=== PATIENT | male | born 1950 | race Asian ===

== ENCOUNTER 2016-03-17 12:31 | Emergency (ER) | payer OTHER ==
[2016-03-17 12:54] VITALS: TEMP 98
[2016-03-17] MEDS ORDERED: IBUPROFEN 600 MG TAB PO ONE (13:05)
--- NOTE | 2016-03-17 14:46 | DX ---
Left hip, 2 views History: Fall, pain. Findings: Lateral acetabular rim 50 mm minimally displaced probable acute fracture noted. 3-mm bone density lateral to the femoral neck also probably representing a nondisplaced femoral neck fracture. No evidence of superior or inferior pubic ramus fractures. No significant joint space narrowing. Mode rate degenerative disk disease in the lumbar spine at L4-L5 with circumferential osteophytes. Impression: 1. Left acetabular lateral rim fracture. 2. Possible left femoral neck fracture. 3. Recommend CT left hip for further evaluation. Findings and recommendations discussed with Marii Mckeon PA-C at 1440 hours today.
--- NOTE | 2016-03-17 15:36 | CT ---
CT of the left hip Without Contrast With Multiplanar Reconstructions at 1454 hours History: Left hip pain post fall, acetabular fracture on plain film. Comparison: Today's plain film of the left hip. Technique: Noncontrast axial computed tomographic images of the left hip with sagittal, coronal, and multiplanar reconstructions. Multiplanar reconstructions including 3D reconstructions performed and e valuated on [employer] workstation in order to better evaluate the femoral neck and acetabular region. Do se reduction techniques were utilized. Findings: There is a vertical lucency and nondisplaced fragment involving the lateral aspect of the a cetabulum, most likely representing a nondisplaced acetabular fracture measuring 14 mm in AP dimensio n. Left femoral head and neck region demonstrate no evidence of acute fracture. The medial wall of th e acetabulum appears intact. No significant joint space narrowing. Impression: 1. Nondisplaced left acetabular superolateral rim fracture. 2. No evidence of left femoral head/neck fracture. Findings and recommendations discussed with Marii Mckeon PA-C at 1520 hours today. Cosign: Dr. Haseeb Erwin
--- NOTE | 2016-03-17 15:49 | UCPHY ---
H & P Patient Type: New Smoking Status: Never smoked Time Seen by Provider: 03/17/16 12:37 HPI/ROS: CHIEF COMPLAINT: Left hip pain after fall HISTORY OF PRESENT ILLNESS: 65-year-old male presents to urgent care by private vehicle after he slipped and fell on his carpeted stairs at home 2 days ago. Since that time he has had isolated pain to the left hip. He denies hitting his head or losing consciousness. Denies any presyncopal symptoms prior to his fall. Denies back pain. He has a history of back surgery 6 months ago and has a bit of weakness in his left leg any way any thinks that is why he slipped and fell. He denies abdominal pain. Denies chest pain or difficulty breathing. Denies neck or back pain. Denies symptoms in the right lower extremity or the upper extremities bilaterally. REVIEW OF SYSTEMS: Constitutional: No fever, no chills. Eyes: No double or blurry vision. ENT: No sore throat. Respiratory: No cough, no shortness of breath. Cardiac: No chest pain. Gastrointestinal: No abdominal pain, vomiting or diarrhea. Genitourinary: No dysuria. Musculoskeletal: No neck or back pain. Skin: No rashes. Neurological: No headache. (Marii Mckeon) Past Medical/Surgical History: Back surgery [address] Lai Thacker (Marii Mckeon) Social History: (Marii Mckeon) Physical Exam: General Appearance: Alert, no distress. No visible signs of trauma to his head. He is mentating normally and answering questions appropriately. Eyes: Pupils equal and round. Extraocular motions are all intact. ENT: Mouth: Mucous membranes moist. Respiratory: No wheezing, rhonchi, or rales, lungs are clear to auscultation. Cardiovascular: Regular rate and rhythm. Gastrointestinal: Abdomen is soft and nontender, no masses, no rebound or guarding, bowel sounds normal. Neurological: Alert and oriented x 3, cranial nerves II through XII grossly intact Skin: Warm and dry, no rashes. Musculoskeletal: Nontender to palpate along the cervical, thoracic or lumbar spine. Neck is supple. Extremities: Pain with external rotation especially of the left hip. He has pain with flexing his left knee as well. He has reproducible pain with palpation to the lateral aspect of the left hip. No palpable crepitus or other bony abnormality. Nontender to palpate the right hip. Full range of motion of the right lower extremity in his upper extremities bilaterally. Reflexes are 2+ and equal for lower extremities bilaterally. Psychiatric: Patient is oriented X 3, there is no agitation. (Marii Mckeon) Constitutional: Initial Vital Signs Temperature (C) 36.6 C 03/17/16 12:49 Heart Rate 73 03/17/16 12:49 Respiratory Rate 18 03/17/16 12:49 Blood Pressure 117/78 03/17/16 12:49 O2 Sat (%) 97 03/17/16 12:49 O2 Delivery Mode Room Air Allergies/Adverse Reactions: Sulfa (Sulfonamide Antibiotics) Allergy (Verified 07/15/15 09:32) Home Medications: Medication Instructions Recorded Aspirin [Aspirin 81mg (*)] 81 mg PO DAILY 07/09/15 Cholecalciferol Vit D3 [Vitamin D3 1,000 units PO DAILY 07/09/15 (*)] Irbesartan [Avapro 75 mg (*)] 37.5 mg PO DAILY 07/09/15 Multivitamins [Multivitamin (*)] 1 each PO DAILY 07/09/15 [place]-3 Fatty Acids [Fish Oil 1000 2,000 mg PO DAILY 07/09/15 mg (*)] Methocarbamol [Robaxin 750 mg (*)] 750 mg PO QID PRN #40 tab 08/21/15 Sennosides/Docusate Sodium 1 - 2 tab PO BID #30 tab 08/21/15 [Senokot-S] oxyCODONE IR [Oxycodone Ir (*)] 5 mg PO Q3 PRN #60 tab 08/21/15 Hydrocodone/APAP 5/325 [[place] 1 each PO Q4-6PRN PRN #15 tab 03/17/16 5/325 (*)] Medical Decision Making - Diagnostics Imaging: X-rays of the left hip and pelvis reveal possible acetabular fracture as well as possible femoral neck fracture. This is reviewed by myself and the PAC system as well as with the radiologist, Dr. Jensen. CT imaging of the left hip reveal acetabular fracture. No femoral neck fracture noted. This was reported to me by Dr. Jensen. (Marii Mckeon) ED Course/Re-evaluation: 65-year-old male presents after mechanical fall on stairs 2 days ago injuring his left hip. X-rays of the left hip and pelvis reveal possible femoral neck fracture and acetabular fracture. This was reviewed by myself as well as discussed with Dr. Jensen. Patient had CT imaging of the left hip to further evaluate fracture. There is no femoral neck fracture seen on CT scan. However, avulsion fracture of the acetabulum noted. I spoke with Dr. Siva Verduzco who was on-call for Orthopedics, who agreed with weightbear as tolerated. He may use crutches if needed or a walker. He was encouraged to have follow-up in their clinic to recheck. This was discussed with the patient as well as at bedside who is a nurse at [facility]. They agree. The is already made an appointment for him to see an orthopedist tomorrow at 10:30 a.m.. Patient will be discharged with hydrocodone per their request. He will weightbear as tolerated. He was comfortable with this plan and comfortable being discharged home. (Marii Mckeon) Urgent Care PA supervision Physician documentation: The patient was evaluated and managed by the physician lpn or medical assistant. My co- signature indicates that I have reviewed this chart and I agree with the findings and plan of care as documented. I am is secondary supervising physician. (Freddy Wahl) Differential Diagnosis: Including but not limited to fracture, dislocation, contusion, sprain (Marii Mckeon) - Data Points Medications Given: Discontinued Medications Ibuprofen (Motrin) 600 mg PO EDNOW ONE Stop: 03/17/16 13:06 Last Admin: 03/17/16 13:40 Dose: Not Given Departure - Departure Disposition: Home, Routine, Self-Care Clinical Impression: Left acetabular fracture Condition: Good Instructions: Pelvic Fracture (ED) Additional Instructions: The radiologist believes that you have a fracture of your left acetabulum. We spoke with Dr. Verduzco while you are in urgent care. You may weightbear as tolerated. You may use crutches or a walker for assistance if needed. Return or go to the emergency department if you develop increasing pain or if you feel worse in any way. [place] for severe pain as directed. Referrals: Siva Verduzco MD [Medical Doctor] - 2-3 days without fail (Orthopedic surgeon on-call) Prescriptions: Hydrocodone/APAP 5/325 [[place] 5/325 (*)] 1 each PO Q4-6PRN PRN #15 tab PRN Reason: Pain, Severe - PQRS PQRS Measurement: Not applicable (Marii Mckeon
[2016-03-17 16:39] VITALS: BP 159/92; PULSE 90; RESP 16; O2SAT 92
== END 2016-03-17 16:40 | disposition home or self-care (01) ==
LOC: CED 12:31
DX: S32.492A Other specified fracture of left acetabulum, initial encounter for closed fracture (principal)
CPT/HCPCS: 73502-PO; 73700-PO; 99214-PO; G0463-PO

== ENCOUNTER → 2016-03-23 | Outpatient (CLI) | payer OTHER ==
--- NOTE | 2016-03-23 16:50 | DX ---
Pelvis, One View Indication: Fall. Prior fracture. Comparison: CT lower extremity March 17, 2016. Findings: A small area of irregularity off of the left posterior acetabulum is again seen and shows evidence of healing. Femoral heads and necks are unremarkable. The remainder of the bony pelvis is normal. Impression: Healing nondisplaced posterior acetabular fracture.
== END ==
LOC: FIMAGING 07:18
PROVIDERS: ATTEND Physician Assistant
DX: S32.402A Unspecified fracture of left acetabulum, initial encounter for closed fracture (principal)

== ENCOUNTER 2016-05-14 15:01 | Observation (INO) | payer OTHER ==
[2016-05-14] MEDS ORDERED: ONDANSETRON 4 MG/2 ML VIAL IVP PRN (16:00)
[2016-05-14] MEDS ORDERED: ACETAMINOPHEN 325 MG TAB PO PRN (16:00)
[2016-05-14] MEDS ORDERED: ONDANSETRON DISINTEGRATING 4 MG TAB PO PRN (16:00)
[2016-05-14] MEDS ORDERED: NITROGLYCERIN 0.4 MG BTL SL PRN (16:10)
--- NOTE | 2016-05-14 16:26 | PDCARPN ---
Cardiology Progress Note Chief Complaint: Chest pressure Assessment/Plan: Assessment: Mr. Jain is a direct admit from our office. Please see Dr. Jacome it is noted as H&P. 65-year-old male with significant history non flow limiting CAD (based off cardiac catheterization 2012, maximum luminal stenosis 50% and distal LAD), WPW (refused ablation past), hypertension, sleep apnea (CPAP) and previous smoker.. Reporting new onset chest pressure, lightheadedness, and fatigue. Electrocardiogram done in office revealed new ST segment depression and T-wave inversion in V3, V4, V5, V6. He currently denies of any chest pressure or pain. He has been admitted to the hospital for evaluation of ACS. Plan: 1. Chest pressure: Patient with known history of CAD with new electrocardiogram changes. Will plan on doing serial troponin levels. If negative, will then plan on doing ETT/MPI study in a.m.. If he does have a bump troponin, then consideration for coronary catheterization. Continue on home anti-platelet aspirin therapy. Sublingual nitroglycerin has been ordered. Will also have him get a chest x-ray. NPO after midnight, case he may need catheterization. 2. CAD: Patient with known history of non flow limiting CAD based off of cardiac catheterization in 2012. Continue on anti-platelet of aspirin. Patient had been on statin therapy in the past of Lipitor, reporting muscle aches and pains, self discontinued. Will have him get a fasting lipid panel in a.m. for evaluation. 3. Hypertension: Current blood pressure within normal limits. Continue on home dosage medication. Continue monitor, adjust as necessary 4. WPW: Office EKG does show prominent delta wave, patient denies of any palpitations. Will monitor on continuous cardiac 5. Sleep apnea: Patient will plan on using home CPAP machine. 6. DVT precaution: Patient is mobile, will hold off on any anticoagulation at this time, in case patient may need potential catheterization or be started on heparin. 7. Code status: Patient is a full code. 05/14/16 16:24 Subjective: Patient currently denies of any chest pain, shortness of breath, palpitations, lightheadedness, orthopnea, PND, edema, near-syncope or syncopal events. Denies of any symptoms suggestive TIA or CVA. Reviewed/Discussed With: family (Patient ), other (Dr Jacome) Objective: Vital Signs (8 Hrs) Temp Pulse Resp BP Pulse Ox 05/14/16 15:54 36.6 C 81 16 127/77 H 91 L Intake/Output (24 Hrs) 05/13/16 05/14/16 05/15/16 05:59 05:59 05:59 Other: Weight 80.8 kg - Physical Exam Constitutional: WDWN, healthy appearing, no apparent distress Ears, Nose, Mouth, Throat: moist mucous membranes Cardiovascular: regular rate and rhythm, no murmurs, no rubs, no gallops, pulses symmetric bilat, No jugular vein distention, No carotid bruit Peripheral Pulses: 2+: carotid (R), carotid (L), dorsalis-pedis (R), dorsalis- pedis (L) Respiratory: clear to auscultate bilat, no crackles, no wheezes, No reduced air movement Gastrointestinal: normoactive bowel sounds Skin: no rashes, warm, no edema Neurologic: AAOx3 Psychiatric: cooperative, interactive, following commands ICD10 Worksheet Patient Problems: Problems Problem Status Onset Lumbar stenosis Acute Lumbar radicular pain Acute
[2016-05-14 16:31] LABS: % IMMATURE GRANULYOCYTES 0.3 % (0.0-1.1); ABSOLUTE IMMATURE GRANULOCYTES 0.01 10^3/uL (0.00-0.10); ADD DIFF? NO; ADD MORPH? NO; ADD SCAN? NO; ATYPICAL LYMPHOCYTE FLAG 0 (0-99); FRAGMENT RBC FLAG 0 (0-99); HEMATOCRIT 46.8 % (40.0-51.0); HEMOGLOBIN 15.2 g/dL (13.7-17.5); LEFT SHIFT FLG 0 (0-99); LIPEMIA HEMOLYSIS FLAG 80 (0-99); MEAN CELL HEMOGLOBIN 24.5 pg (27.9-34.1); MEAN CELL HEMOGLOBIN CONCENTR. 32.5 g/dL (32.4-36.7); MEAN CELL VOLUME 75.4 fL (81.5-99.8); MEAN PLATELET VOLUME 7.9 fL (8.7-11.7); PLATELET CLUMPS FLAG 0 (0-99); PLATELET COUNT 143 10^3/uL (150-400); RED BLOOD CELL COUNT 6.21 10^6/uL (4.40-6.38); RED CELL DISTRIBUTION WIDTH 15.9 % (11.5-15.2)
[2016-05-14 16:53] LABS: ALANINE AMINOTRANSFERASE 48 IU/L (21-72); ALBUMIN 4.4 g/dL (3.5-5.0); ALKALINE PHOSPHATASE 59 IU/L (38-126); ANION GAP 12 mEq/L (8-16); ASPARTATE AMINOTRANSFERASE 34 IU/L (17-59); BILIRUBIN,TOTAL 0.6 mg/dL (0.1-1.4); CALCIUM 9.5 mg/dL (8.5-10.4); CARBON DIOXIDE 21 mEq/l (22-31); CHLORIDE 107 mEq/L (97-110); CREATININE 1.1 mg/dL (0.7-1.3); GLOMERULAR FILTRATION RATE > 60; GLUCOSE 127 mg/dL (70-100); POTASSIUM 4.1 mEq/L (3.5-5.2); SODIUM 140 mEq/L (134-144); TOTAL PROTEIN 7.8 g/dL (6.3-8.2)
[2016-05-14 17:05] LABS: TROPONIN I < 0.012 ng/mL (0-0.034)
--- NOTE | 2016-05-14 17:20 | CPEKG ---
Heart Rate: 82 RR Interval: 732 P-R Interval: 120 QRSD Interval: 130 QT Interval: 388 QTC Interval: 453 P [place]: 53 QRS [place]: -41 T Wave [place]: 126 EKG Severity - ABNORMAL ECG - EKG Impression: SINUS RHYTHM EKG Impression: LVH WITH IVCD, LAD AND SECONDARY REPOL ABNRM EKG Impression: probable pre-excitation pathway EKG Impression: non-specific ST depression laterally. Electronically Signed By: Victor M Villavicencio 15-May-2016 10:05:13
[2016-05-14] MEDS: NS 1,000 ML IV SCH (17:48)
[2016-05-14] MEDS: OMEGA-3 FATTY ACIDS 1,000 MG CAP PO SCH (20:55)
[2016-05-14] MEDS: ASPIRIN 81 MG CHEWABLE TAB PO SCH (20:55)
[2016-05-15 05:38] LABS: CHOLESTEROL 158 mg/dL (140-220); CHOLESTEROL/HDL RATIO 5.64 RATIO (1.00-4.97); HIGH DENSITY LIPOPROTEIN 28 mg/dL (40-65); LDL/HDL RATIO 3.29 RATIO (1.00-3.64); LOW DENSITY LIPOPROTEIN 92 mg/dL (80-100); NON-HIGH DENSITY LIPOPROTEIN 130 mg/dL (90-129); TRIGLYCERIDE 194 mg/dL (40-150); VERY LOW DENSITY LIPOPROTEINS 38 mg/dL (8-25)
[2016-05-15 05:46] LABS: TROPONIN I < 0.012 ng/mL (0-0.034)
--- NOTE | 2016-05-15 05:52 | CPEKG ---
Heart Rate: 57 RR Interval: 1053 P-R Interval: 132 QRSD Interval: 124 QT Interval: 448 QTC Interval: 437 P [place]: 68 QRS [place]: -56 T Wave [place]: 93 EKG Severity - ABNORMAL ECG - EKG Impression: SINUS RHYTHM EKG Impression: VENT PREEXCITATION, LEFT ACCESSORY PATHWAY Electronically Signed By: Victor M Villavicencio 15-May-2016 10:02:51
[2016-05-15] MEDS ORDERED: CHOLECALCIFEROL VIT D3 1,000 UNITS TAB PO SCH (09:00)
[2016-05-15] MEDS ORDERED: IRBESARTAN 75 MG TAB PO SCH (09:00)
[2016-05-15] MEDS ORDERED: REGADENOSON 0.4 MG/5 ML SYR IVP ONE (09:09)
--- NOTE | 2016-05-15 10:30 | SOAPPROG ---
SOAP Progress Note Assessment/Plan: Assessment: Cardiology ([place]) 1. Admit w/ chest discomfort and abnormal EKG directly from Dr. Jacome's office. Troponins negative x 3 overnight. Patient had chest discomfort overnight that was relieved with O2 by nc. He has continued to have chest discomfort this am. Patient developed 7/10 chest pain immediately following Lexiscan injection that was consistent with prior chest pain. There was TWI in V3-V6 along with [address] segment depression in the lateral leads. 2. Known mild-moderate CAD 2/2 [facility] 2012, apical LAD disease, no history of PCI. He is not on statin therapy. 3. WPW, no history of ablation. The patient does not complain of tachyarrhythmias. 4. HTN 5. ROBEL Plan: 1. NTG x 1 given following stress test with relief of chest pain. 2. Patient was sent down for MPI, await results of imaging. 3. Findings discussed with Dr. Whittaker and Dr. Wahl. Likely [facility] later today. Subjective: Patient visit was conducted simultaneously at time of stress test. Chief complaint is chest pressure substernally. There is no radiation, shortness of breath, presyncope, diaphoresis or nausea. / RN Munira present at the time of testing and agrees with assessment. Objective: Vital Signs Temp Pulse Resp BP Pulse Ox 36.8 C 59 L 18 117/63 94 05/15/16 08:24 05/15/16 09:50 05/15/16 08:24 05/15/16 09:50 05/15/16 09:50 Laboratory Results 05/14/16 16:15 05/14/16 16:15 05/14/16 05/15/16 05/16/16 05:59 05:59 05:59 Intake Total 1650 Balance 1650 Physical Exam - Physical Exam General Appearance: WD/WN, alert, no apparent distress Respiratory: chest non-tender, lungs clear, normal breath sounds Cardiac/Chest: normal peripheral pulses, regular rate, rhythm Neuro/Psych: no motor/sensory deficits, alert, normal mood/affect, oriented x 3 ICD10 Worksheet Patient Problems: Problems Problem Status Onset Lumbar radicular pain Acute Lumbar stenosis Acute
--- NOTE | 2016-05-15 10:50 | CPR ---
DATE OF PROCEDURE: 05/15/2016 PROCEDURE: Lexiscan nuclear stress test. INDICATION FOR PROCEDURE: 65-year-old male with known coronary disease by left heart catheterizatio n in 2012 with no intervention performed, hypertension, [id number]-Qsniz, who presented to the hospital from Dr. Jacome's office due to abnormal EKG in the setting of chest discomfort. He has ru led out with negative troponins x3. The patient did have chest discomfort overnight that was reliev ed by oxygen by nasal cannula. He has not had any arrhythmic events on telemetry overnight. DESCRIPTION OF PROCEDURE: Informed consent was obtained. Resting heart rate and blood pressure malachi ng with 12-lead EKG were obtained in the supine position. The patient underwent stress via standard Lexiscan protocol, followed by injection of sestamibi. He was observed in recovery for 5 minutes. FINDINGS: Baseline heart rate 60 beats per minute, baseline blood pressure 106/66 mmHg, baseline ox ygen saturation 95%. Baseline 12-lead EKG shows normal sinus rhythm at 60 beats per minute with patience rt VT interval and pre-excitation pattern. T-waves are upright. Following injection of Lexiscan, t he patient's heart rate increased to 91 beats per minute with an increase in blood pressure to 126/7 0. He developed 7/10 chest pain during the procedure. T-wave inversions in leads V4 through V6 occ urred in conjunction with his chest discomfort. Upon recovery, heart rates remain greater than 100 with blood pressures stable in the one-teens over 70s. Oxygen saturation remained greater than 98%. His T-wave inversions persisted into recovery with ST depression of 1-2 mm. His chest discomfort waned to 2/10 to 3/10. IMPRESSION: 1. Abnormal Lexiscan stress test due to provoked anginal symptoms and ischemic EKG changes in the l ateral leads. 2. Known coronary disease with last heart catheterization 2012 showing most prevalent lesion of 40% to 50% stenosis in the distal LAD. 3. Vinvq-Vmyvlvcuf-Pnbfy, refusal for ablation. 4. Hypertension. 5. Adequately controlled lipids without statin therapy. 6. Obstructive sleep apnea. PLAN: Due to the patient's ongoing chest discomfort, he has been given 1 dose of 0.4 mg sublingual nitroglycerin which helped relieve his chest discomfort almost completely. Dr. Whittaker has been con tacted regarding the results, however the patient will be sent down for myocardial perfusion imaging with strong possibility of diagnostic angiography later today. He will be kept n.p.o. /[id number]/MODL
[2016-05-15] MEDS ORDERED: ACETAMINOPHEN 325 MG TAB PO PRN (11:14)
[2016-05-15] MEDS ORDERED: TEMAZEPAM 15 MG CAP PO PRN (11:14)
[2016-05-15] MEDS ORDERED: ASPIRIN EC 325 MG TAB PO ONE ×2 (11:14→14:30)
[2016-05-15] MEDS ORDERED: diphenhydrAMINE 25 MG CAP PO ONE ×2 (11:14→14:30)
[2016-05-15] MEDS ORDERED: DIAZEPAM 5 MG TAB PO ONE ×2 (11:14→14:30)
[2016-05-15] MEDS ORDERED: NITROGLYCERIN 0.4 MG BTL SL PRN (11:14)
[2016-05-15] MEDS: NS 1,000 ML IV SCH (13:14)
[2016-05-15] MEDS ORDERED: LIDOCAINE 1% 30 ML SDV ONE (15:27)
[2016-05-15] MEDS ORDERED: fentaNYL 100 MCG/2 ML INJ ONE (15:28)
[2016-05-15] MEDS ORDERED: IOPAMIDOL (ISOVUE-370) 150 ML BTL IV ONE (15:28)
[2016-05-15] MEDS ORDERED: MIDAZOLAM 2 MG/2 ML VIAL ONE (15:28)
[2016-05-15] MEDS ORDERED: HEPARIN 10,000 UNIT/10 ML MDV ONE (15:44)
[2016-05-15] MEDS ORDERED: VERAPAMIL 5 MG/2 ML VIAL ONE (15:44)
[2016-05-15] MEDS ORDERED: ONDANSETRON 4 MG/2 ML VIAL IVP PRN (16:56)
[2016-05-15] MEDS ORDERED: ATROPINE SULFATE 1 MG/10 ML SYR IVP PRN (16:56)
[2016-05-15] MEDS ORDERED: HYDROCODONE/APAP 5/325 TAB PO PRN (16:56)
--- NOTE | 2016-05-15 17:36 | CPIP ---
DATE OF PROCEDURE: 05/15/2016 PRIMARY OPERATIONS TECHNICIAN: Jus Jacome MD INDICATION: 65-year-old man with known coronary disease presenting with anginal-type chest pain and new EKG changes. Patient underwent Lexiscan nuclear imaging stress test, which was abnormal, and a ssociated with significant anginal-type pain which was prolonged and required nitroglycerin for reli ef. PROCEDURE PERFORMED: Left heart catheterization with left ventricular and selective coronary angiog imelda via right radial approach. DESCRIPTION: Risks, benefits, and alternatives were discussed. Informed consent was obtained. Pat ient was brought to the catheterization laboratory. Rashard test was normal. Time-out was performed. Right wrist was sterilely prepped and draped. 2% lidocaine utilized for local anesthetic. A 6-Fr ench slender sheath placed in the right radial artery utilizing micropuncture technique. Heparin 30 00 units was administered intravenously and interarterial verapamil was utilized. A 0.035 J-wire wa s utilized with a JR4 catheter to access the ascending aorta. There was difficulty with this wire, and ultimately a Magic Torque wire was utilized for the remainder of the case. Coronary angiography was performed with a 6-[place] JR4 and 6-Guyanese JL 3.5 diagnostic catheters. Pigtail catheter utili zed for left heart catheterization and left ventricular angiography. Sheath was removed and TR band was placed. FINDINGS: 1. Hemodynamics: Please see bottle labeler flow sheet. 2. Left ventricle: Normal in size and shape. Segmental wall motion is normal. Ejection fraction is at least 65%. There are no filling defects or significant mitral regurgitation. There is mild d ilation of the ascending aorta above the aortic root consistent with possible early aneurysm formati on. There is calcification and atherosclerosis in the aortic arch. There is no evidence of aortic dissection. Coronary calcification, which is moderate, is identified. 3. Coronary angiography:. a. Right coronary artery: Right coronary is moderate and non dominant with 3 right ventricular bra nches and has minimal plaquing and no significant stenosis. b. Left main: Left main is a large bifurcating vessel of moderate length with minimal plaquing and no significant stenosis. c. Left anterior descending: This is a very large vessel which continues around the apex and actua lly gives rise to the entire posterior descending artery, thus feeding nearly the entire inferior wa ll. The LAD contains a proximal plaque of 40% to 50%, some very mild mid ectasia, then mid stenosis in the 40% range, and distal disease in the 40%range. There are 2 moderate mid-diagonal branches. The remainder of the LAD has minimal atherosclerotic plaquing. d. Circumflex: The circumflex is not truly dominant as the PDA comes off the LAD. The circumflex gives rise to a moderate bifurcating 1st marginal branch and 2 [id number] posterolateral bran ches, and the circumflex has mild plaquing. OVERALL IMPRESSION: 1. Liyb-wl-cpwrbliz atherosclerotic disease affecting the very large left anterior descending/wrap- around posterior descending artery .. 2. Dilated ascending aorta. 3. History of hypertension. 4. Acrss-Suplatccb-Mkoet with previous SVT x2. 5. Extraordinary low HDL cholesterol. RECOMMENDATIONS: 1. Further evaluation of ascending aorta with outpatient CT angiography as well as echocardiography . 2. Referral back to Dr. Vaca for further discussion of WPW ablation. I believe that this patient sh ould be on beta blockade. This is potentially relatively contraindicated in the setting of WPW with out ablation. 3. Statin therapy. Apparently, patient has attempted Lipitor in the past and did not tolerate this . I am recommending he start Crestor 10 mg 3 days a week(Tuesday, Tuesday, and Tuesday) to achieve an LDL cholesterol in the 60s. 4. Trial of sublingual nitroglycerin for recurrent chest discomfort as he may have "small vessel di sease." He also could be attempted on Ranexa in the future. 5. Consider evaluation and treatment of other causes of his chest discomfort, including gastroesoph ageal reflux. 6. Patient will be following with both Dr. Jacome and Dr. Alfonso in the next week or 2. /[id number]/MODL
[2016-05-15 20:28] VITALS: BP 96/59; PULSE 63; RESP 12; TEMP 98.2; O2SAT 94
[2016-05-15] MEDS: ASPIRIN 81 MG CHEWABLE TAB PO SCH (22:12)
[2016-05-15] MEDS: OMEGA-3 FATTY ACIDS 1,000 MG CAP PO SCH (22:12)
== END 2016-05-15 21:40 | disposition home or self-care (01) ==
LOC: F2W 15:34
PROVIDERS: ADMIT Internal Medicine Cardiovascular Disease; ATTEND Internal Medicine Cardiovascular Disease
PROC: 4A023N7 Measurement of Cardiac Sampling and Pressure, Left Heart, Percutaneous Approach (ICD-10-PCS; principal; 2016-05-14)
PROC: B2111ZZ Fluoroscopy of Multiple Coronary Arteries using Low Osmolar Contrast (ICD-10-PCS; principal; 2016-05-14)
PROC: 4A12XM4 Monitoring of Cardiac Stress, External Approach (ICD-10-PCS; principal; 2016-05-14)
PROC: B2151ZZ Fluoroscopy of Left Heart using Low Osmolar Contrast (ICD-10-PCS; principal; 2016-05-14)
DX: R07.9 Chest pain, unspecified (principal); R94.31 Abnormal electrocardiogram [ECG] [EKG]; I25.10 Atherosclerotic heart disease of native coronary artery without angina pectoris; I77.810 Thoracic aortic ectasia; I10 Essential (primary) hypertension; I45.6 Pre-excitation syndrome; E78.6 Lipoprotein deficiency; G47.33 Obstructive sleep apnea (adult) (pediatric); Z87.891 Personal history of nicotine dependence
CPT/HCPCS: 71020; 78451; 93005; 93017; 93458; A9500; C1769; G0378; J1644; J2250; J2785; J3010; Q9967

== ENCOUNTER → 2016-05-28 | Outpatient (CLI) | payer OTHER ==
[~2016-05-28] MED LIST: IOPAMIDOL (ISOVUE 370) 100 ML BTL IV ONE
== END ==
LOC: FIMAGING 09:46
PROVIDERS: ATTEND Internal Medicine Cardiovascular Disease
DX: I25.10 Atherosclerotic heart disease of native coronary artery without angina pectoris (principal); I70.0 Atherosclerosis of aorta
CPT/HCPCS: Q9967

== ENCOUNTER → 2017-05-26 | Outpatient (CLI) | payer OTHER | LOC: FIMAGING 12:53 | PROVIDERS: ATTEND Internal Medicine | DX: M19.012 Primary osteoarthritis, left shoulder (principal); M24.251 Disorder of ligament, right hip; M24.252 Disorder of ligament, left hip ==